=== PATIENT | male | born 2000 | race Caucasian/White ===

== ENCOUNTER 2019-11-11 20:27 | Emergency (ER) | payer OTHER, SELFPAY ==
[2019-11-11 20:29] VITALS: BP 129/76; PULSE 62; RESP 18; TEMP 36.2; O2SAT 99; BMI 19.9
--- NOTE | 2019-11-11 20:50 | DCINST.ED_ITS ---
ED Disposition - Plan for ED Patient: Instructions: ED Laceration All Closures Referrals: [facility] [GROUP OF PHYSICIANS] -
--- NOTE | 2019-11-11 20:50 | ED.DEP ---
ED Disposition - Plan for ED Patient: Instructions: ED Laceration All Closures Referrals: Corporate,[facility] [GROUP OF PHYSICIANS] -
--- NOTE | 2019-11-11 20:56 | ED.DCSUM_ITS ---
- ER Visit Summary Date of Service: 11/11/19 Chief Complaint: Right upper extremity laceration History of Present Illness: The patient is a 19 M presenting with laceration to right upper extremity. Patient states this occurred at work. He states he was loading coil onto a press. He cut the coil and the coil came back and cut his right arm. He is right-handed. He states this was washed out at work. His last tetanus is unknown. He states he was initially unable to control the bleeding. The nurse at work applied a powder to help it clot. The bleeding has now resolved. Physical Examination: Vitals are stable. Patient is afebrile. Alert no acute distress. HEENT exam is unremarkable. Neck is supple. Lungs are clear and equal bilaterally. Heart is regular rate and rhythm. Extremities right upper extremity laceration, no active bleeding, clotting powder intact, active full range of motion. Neurovascular intact distally. Skin is warm and dry. No focal neurologic deficit. Remainder of exam is unremarkable. Emergency Department Course and Treatment: There is no active bleeding at this time. Wound was cleaned and dressed. He was given tetanus IM. Advised to follow up with [facility] care. Advised return to ED for worsening complaints. Disposition: Discharge home Impression: Right upper extremity laceration This note was generated with [employer] dictation software. It may contain incorrect words, spelling, and punctuation that were not noted in review of the chart prior to signing ED Disposition - Plan for ED Patient: Instructions: ED Laceration All Closures [facility]YS[facility]] -
[2019-11-11 22:01] VITALS: PULSE 72; RESP 14; O2SAT 98
== END 2019-11-11 22:15 | disposition home or self-care (01) ==
LOC: ED 21:28
PROVIDERS: Emergency Provider Emergency Medicine
DX: S41.111A Laceration without foreign body of right upper arm, initial encounter (principal); W45.8XXA Other foreign body or object entering through skin, initial encounter; W22.8XXA Striking against or struck by other objects, initial encounter; Y93.89 Activity, other specified; Y92.89 Other specified places as the place of occurrence of the external cause; Y99.0 Civilian activity done for income or pay
CPT/HCPCS: 99282